=== PATIENT | female | born 1990 | race Caucasian/White ===

== ENCOUNTER 2017-01-31 13:00 | Inpatient (IN) | payer OTHER ==
[~2017-01-31] VITALS: Ht 165.1 cm; Wt 59.0 kg
--- NOTE | ~2017-01-31 | HP ---
Unit #: [id number] #: [id number] Patient: DIOGO CARDONA [id number] [place] [address] [id number] MR#: [id number] NAME: DIOGO CARDONA. ROOM: [facility] Age: 26 Sex: F Admission Date: 01/31/2017 : 1990 Attending Physician: Julito Bowen M.D. Admitting Physician: Julito Bowen M.D. Primary Care Physician: Primary Care Physician No HISTORY AND PHYSICAL HISTORY OF PRESENT ILLNESS Diogo is a 26-year-old female admitted on 01/31/[address] [place] [address] for depression. She has a history of bipolar disorder and has been off of her medications. PAST MEDICAL HISTORY 1. GERD. 2. Endometriosis. PAST SURGICAL HISTORY Abdominal laparoscopy due to endometriosis. ALLERGIES No known drug allergies. SOCIAL HISTORY Smokes 1 pack of cigarettes daily. She denies alcohol or illegal drug use. She is currently single and living alone. FAMILY HISTORY Noncontributory. REVIEW OF SYSTEMS CONSTITUTIONAL: No fever or chills. HEENT: Denies any sore throat, ear pain or runny nose. CARDIOVASCULAR: Denies chest pain, irregular heart rhythm or palpitations. CHEST: Denies shortness of breath or cough. No hemoptysis. GASTROINTESTINAL: Denies nausea, vomiting, diarrhea or chronic constipation. ENDOCRINE: Denies history of increased thirst or urination. No recent significant weight loss or gain. GENITOURINARY: Denies dysuria, frequency, or hematuria. SKIN: Denies any rashes. HEMATOLOGIC: Denies history of increased bleeding or bruising. MUSCULOSKELETAL: Denies any hot, swollen joints. No generalized muscle pain. NEUROLOGIC: Denies problems with vision or speech. No frequent, severe headaches. No numbness, tingling or weakness in any extremities. Denies loss of bladder or bowel control. CURRENT MEDICATIONS Please see medication reconciliation form in chart. Unit #: [id number] #: [id number] Patient: DIOGO CARDONA PHYSICAL EXAMINATION GENERAL: Alert, oriented, in no acute distress. VITAL SIGNS: Blood pressure 113/85, heart rate 83, respirations 16, temperature 98.8. HEIGHT: 5 feet 5. WEIGHT: 130 pounds. SKIN: Warm and dry without rash or lesion. HEENT: Normocephalic. TMs not viewed. Oral and nasal passages clear. Conjunctivae clear. PERRLA. EOMs intact. NECK: Supple without lymphadenopathy or thyromegaly. HEART: Regular rate and rhythm without murmur. LUNGS: Clear. ABDOMEN: Soft, nontender, without masses or hepatosplenomegaly. : Not done. EXTREMITIES: No evidence of cyanosis, clubbing or edema. Moves all without focal deficit. NEUROLOGICAL: Grossly within normal limits. Cranial Nerves: II: Visual miller are intact. III, IV AND : Extraocular movements are intact. Pupils are equal, round and reactive to light. V: Facial sensation is grossly normal. VII: Facial movements and expression are normal. VIII: Auditory acuity grossly intact. IX, X: Uvula is midline. Phonation is normal. XI: Patient shrugs shoulders and turns head normally. XII: Tongue protrudes in the midline. Sensory and Motor Function: Sensory and motor sensation is grossly normal. Motor: moves all extremities well. Coordination: Gait is normal. Deep Tendon Reflexes: Intact. IMPRESSION 1. Psychiatric admission. 2. Gastroesophageal reflux disease. 3. Endometriosis. RECOMMENDATIONS PSYCHIATRIC: Per psychiatrist. MEDICAL: No contraindication to participate in facility's activities. MEDICAL PROGNOSIS Good. MEDICAL CONDITION Stable. Dictated by... Stacie Burton/augusto TD: 01/31/2017 20:27 JOB #: [id number] Unit #: [id number] #: [id number] Patient: DIOGO CARDONA HISTORY AND PHYSICAL Page 1 of 1 X YOSEF NOONAN APRN HISTORY AND PHYSICAL
--- NOTE | ~2017-01-31 | PN ---
Unit #: [id number] #: [id number] Patient: DIOGO CARDONA [id number] [facility] [address] [place] [address] [id number] I MR#: [id number] NAME: DIOGO CARDONA ROOM: [facility] Age: 27 Sex: F Admission Date: 01/31/2017 : 1990 Attending Physician: Julito Bowen M.D. Admitting Physician: Julito Bowen M.D. Primary Care Physician: Primary Care Physician Kirstie CASPER PROGRESS NOTES DATE 02/02/2017 DISCUSSION The patient is active within the therapeutic milieu. She reports some issues with anxiety and sleep but reports that these responded well to p.r.n. Vistaril. We have learned from her quantitative HCG that she is 5 to 7 weeks' , and we will not plan to initiate medication for her current mood symptoms until she enters the second trimester of her . The patient is aware of this. She remains homeless and very concerned about that situation, and continues to endorse positive suicide and hopelessness. Dictated by... Julito Bowen M.D. CB/brooke TD: 02/02/2017 14:38 JOB #: [id number] [facility] PROGRESS NOTES Page 1 of 1 X Julito Bowen MD PROGRESS NOTE
--- NOTE | ~2017-01-31 | PN ---
Unit #: [id number] #: [id number] Patient: DIOGO CARDONA [id number] [facility] [address] [place] [address] [id number] MR#: [id number] NAME: DIOGO CARDONA ROOM: P259 Age: 27 Sex: F Admission Date: 01/31/2017 : 1990 Attending Physician: Julito Bowen M.D. Admitting Physician: Julito Bowen M.D. Primary Care Physician: Primary Care Physician Kirstie CASPER PROGRESS NOTES DATE 02/03/2017 DISCUSSION The patient is abed, resting comfortably. Staff reports she has been no management issue but has been active within the therapeutic milieu. She is using Vistaril fairly regularly to address symptoms of anxiety. Dictated by... Julito Bowen M.D. CB/brooke TD: 02/03/2017 11:39 JOB #: [id number] [facility] PROGRESS NOTES Page 1 of 1 X Julito Bowen MD X PROGRESS NOTE
--- NOTE | ~2017-01-31 | PA ---
Unit #: [id number] #: [id number] Patient: DIOGO CARDONA [id number] [facility] [address] [place] [address] [id number] I MR#: [id number] NAME: DIOGO CARDONA. ROOM: [facility] Age: 26 Sex: F Admission Date: 01/31/2017 : 1990 Date of Assessment: 02/01/2017 Attending Physician: Julito Bowen M.D. Admitting Physician: Julito Bowen M.D. Primary Care Physician: Primary Care Physician No PSYCHIATRIC ASSESSMENT IDENTIFYING INFORMATION The patient is a 26-year-old white female admitted to the [address] [place] [address] Unit after she had presented to this facility voicing positive suicidal ideation. CHIEF COMPLAINT None given. INFORMANT Patient, reliability is fair. HISTORY OF PRESENT ILLNESS The patient is a 26-year-old white female admitted after she presented to this facility reporting positive suicidal ideation. The patient was released from skilled nursing on 12/14/2016 after having served 18 months for assault and forgery. The patient was sent to a detention house but left 2 weeks to move in to live with her aunt in [place]. It was determined that the patient would need to come back to the [place] area secondary to her legal status. The patient reports a history of methamphetamine use but claims not to have used since 2011. The patient does admit to recent use of cannabis. When seen today, we have learned that the patient has a positive HCG. The patient reports that she has been diagnosed with bipolar disorder and has had actual psychotic manic episodes. She reports that she has not responded well to second-generation antipsychotics or antidepressants. He does request "something for my anxiety." She continues to endorse positive suicidal ideation. When seen today, she denies homicidal ideation. She was reporting a plan of cutting or stabbing herself because she cannot afford a gun. PAST PSYCHIATRIC HISTORY The patient reports previous psychiatric hospitalizations but does not elaborate. PAST MEDICAL HISTORY Significant for a history of the aforementioned , GERD. MEDICATIONS 1. Prilosec. 2. Diphenhydramine. ALLERGIES None. Unit #: [id number] #: [id number] Patient: DIOGO CARDONA FAMILY HISTORY The patient reports that her sister suffers from "schizophrenia." SOCIAL HISTORY The patient is presently homeless. Her legal status is as described previously as is her substance use history. MENTAL STATUS EXAMINATION Examination at this time reveals the patient to be a well-developed well-nourished white female appearing her stated age. She is in no apparent physical distress at the time of examination. She is awake, alert, and oriented in all spheres. Her mood is mildly dysphoric, her affect congruent. Speech is generally well-coherent. There are no gross deficits in memory or cognition noted. Intelligence is judged to be in the average range based on fund of knowledge. The patient is cooperative throughout the interview. She is currently endorsing positive suicidal ideation. She denies homicidal ideation. She denies any psychotic symptoms. Her judgment and insight appear to be intact. ASSETS AND LIABILITIES The patient's assets: Motivation for change. Liabilities: Homelessness. Probable sociopathy. DIAGNOSTIC IMPRESSION 1. Bipolar disorder, depressed phase. 2. Methamphetamine use disorder by history. 3. Cannabis use disorder. 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 5. Intrauterine . 6. Gastroesophageal reflux disease. TREATMENT PLAN The patient remains hospitalized for safety and stabilization. We will check a quantitative beta HCG and will for the time being hold on initiation of medications apart from symptomatic Vistaril to be given on a p.r.n. basis. The patient will participate in appropriate order of milieu activities. ESTIMATED LENGTH OF STAY 3 to 5 days. Dictated by... Julito Bowen M.D. CONG/brooke TD: 02/01/2017 14:00 JOB #: [id number] Unit #: [id number] #: [id number] Patient: BRENDANDIOGO L PSYCHIATRIC ASSESSMENT Page 1 of 1 X Julito Bowen MD PSYCHIATRIC ASSESSMENT
--- NOTE | ~2017-01-31 | PN ---
Unit #: [id number] #: [id number] Patient: DIOGO CARDONA [id number] [facility] [address] [place] [address] [id number] MR#: [id number] NAME: DIOGO CARDONA ROOM: P252 Age: 27 Sex: F Admission Date: 01/31/2017 : 1990 Attending Physician: Julito Bowen M.D. Admitting Physician: Julito Bowen M.D. Primary Care Physician: Primary Care Physician Kirstie CASPER PROGRESS NOTES DATE 02/04/2017 DISCUSSION The patient remains seclusive to room. Staff reports no management issues. She is resting comfortably today and does not arouse for interview. Dictated by... Julito Bowen M.D. CB/janet TD: 02/05/2017 00:23 JOB #: [id number] [facility] PROGRESS NOTES Page 1 of 1 X Julito Bowen MD X PROGRESS NOTE
--- NOTE | ~2017-01-31 | DS ---
Unit #: [id number] #: [id number] Patient: DIOGO CARDONA [id number] [facility] [address] [place] [address] [id number] I MR#: [id number] NAME: DIOGO CARDONA. ROOM: P252 Age: 27 Sex: F Admission Date: 01/31/2017 : 1990 Discharge Date: 02/05/2017 Attending Physician: Julito Bowen M.D. Primary Care Physician: Primary Care Physician No DISCHARGE SUMMARY REASON FOR ADMISSION The patient is a 26-year-old , white female admitted to the [facility] unit with a history of depressed mood and suicidal ideation. HOSPITAL COURSE The patient was admitted to the [address] [place] [address] unit and placed on suicide precautions. The patient stated that she has been diagnosed with bipolar disorder in the past and had been treated in the past for depression with Lamictal. It was learned, however, the patient is 5 to 7 weeks per testing and the patient agreed that initiation of psychotropic medications apart from p.r.n. Vistaril would be unwise at this point. She participated actively within the therapeutic milieu and by 02/05/2017, she was in bright spirits. She was agreeable with plan for followup through the auspices of the intensive outpatient program and discharge was ordered. FINAL DIAGNOSES Bipolar disorder, depressed phase; methamphetamine use disorder by history; cannabis use disorder; mixed personality disorder with antisocial and borderline traits; intrauterine , 5 to 7 weeks duration; gastroesophageal reflux disease. DISPOSITION ON DISCHARGE The patient is discharged on the following medications: vitamins 1 daily for nutritional supplementation and Vistaril 50 mg q.6 hours p.r.n. anxiety. DISCHARGE INSTRUCTIONS No dietary or physical restrictions were placed upon the patient at the time of discharge. FOLLOWUP Followup will take place in the intensive outpatient program provided by this facility. PROGNOSIS The patient's prognosis is considered fair. Dictated by... Julito Bowen M.D. CB/andi Unit #: [id number] #: [id number] Patient: DIOGO CARDONA TD: 02/05/2017 13:25 JOB #: [id number] DISCHARGE SUMMARY Page 1 of 1 X Julito Bowen MD DISCHARGE SUMMARY
[2017-02-01 09:45] LABS: BASOPHIL% 0.4 % (0-2.5); EOSINOPHIL# 0.1 X10e3 (0-0.7); EOSINOPHIL% 0.7 % (0.0-7.0); HEMATOCRIT 40.2 % (35.0-45.0); HEMOGLOBIN 13.4 gm/dL (12.0-16.0); MEAN CELL VOLUME 100.9 FL (83-96); MEAN CORPUSCULAR HEMOGLOBIN 33.6 PG (28-34); MEAN CORPUSCULAR HGB CONC 33.3 g/dL (30-36); MEAN PLATELET VOLUME 10.1 FL (6.5-11.5); MONOCYTE# 0.5 X10e3 (0-1.0); MONOCYTE% 5.6 % (3.0-12.0); NEUTROPHIL# 7.2 X10e3 (1.5-7.1); NEUTROPHIL% 73.3 % (40-75); PLATELET COUNT 228 X10e3 (140-420); RED BLOOD COUNT 3.98 X10e (3.90-5.30); RED CELL DISTRIBUTION WIDTH 13.5 % (11.0-15.5); WHITE BLOOD COUNT 9.8 X10e3 (4.0-10.5)
[2017-02-01 09:56] LABS: DIFF IND NO
[2017-02-01 10:14] LABS: ALBUMIN SERUM 3.6 g/dL (3.5-5.0); BILIRUBIN,TOTAL 0.7 mg/dL (0.2-2.0); BUN/CREATININE RATIO 17.5; CALCIUM SERUM 8.5 mg/dL (8.4-10.2); CREATININE SERUM 0.4 mg/dL (0.6-1.4); GLOM FILT RATE Estimated 141.8 mL/min (>60); PROTEIN TOTAL SERUM 6.5 g/dL (6.0-8.3)
[2017-02-05 12:36] LABS: URINE APPEARANCE CLOUDY; URINE BILIRUBIN NEG (NEG); URINE BLOOD 1+ (NEG); URINE COLOR YELLOW; URINE GLUCOSE NEG (NEG); URINE KETONE NEG (NEG); URINE LEUKOCYTE ESTERASE 3+ (NEG); URINE NITRATE NEG (NEG); URINE PROTEIN TRACE (NEG); URINE SPECIFIC GRAVITY 1.011 (1.003-1.035); URINE UROBILINOGEN 0.2 MG/DL (NEG)
[2017-02-05 12:40] LABS: URINE BACTERIA AUWI 3+ (NEGATIVE); URINE SQUAMOUS EPITHELIAL CELL MOD /[HPF]; UWBCS1 AUWI INNUM (0-5)
[2017-02-05 13:09] LABS: URINE MUCUS PRESENT
[2017-02-05 13:12] LABS: AMPHETAMINE NEG (NEG); BARBITURATES NEG (NEG); BENZODIAZEPINES NEG (NEG); COCAINE NEG (NEG); MARIJUANA NEG (NEG); OPIATES NEG (NEG); TRICYCLIC ANTIDEPRESSANTS NEG (NEG); U METHADONE NEG (NEG)
== END 2017-02-05 14:10 | disposition home or self-care (01) | DRG 781 ==
LOC: P2L 16:32 → POF 02-03 13:00 → P2L 02-03 13:02
PROVIDERS: Specialist
DX: O99.341 Other mental disorders complicating pregnancy, first trimester (principal); R45.851 Suicidal ideations; F31.9 Bipolar disorder, unspecified; F12.10 Cannabis abuse, uncomplicated; F60.89 Other specific personality disorders; K21.9 Gastro-esophageal reflux disease without esophagitis; Z59.0 Homelessness; F17.210 Nicotine dependence, cigarettes, uncomplicated; O99.331 Smoking (tobacco) complicating pregnancy, first trimester; Z3A.00 Weeks of gestation of pregnancy not specified
CPT/HCPCS: 80053; 80307; 81003; 84702; 84703; 85025